=== PATIENT | female | born 1965 | race Caucasian/White ===

== ENCOUNTER 2021-06-21 18:11 | Emergency (ER) | payer BC ==
[2021-06-21 18:29] VITALS: RESP 18
[2021-06-21] MEDS ORDERED: ACETAMINOPHEN TAB 325 MG TAB PO STA (18:47)
[2021-06-21] MEDS ORDERED: IBUPROFEN 600 MG TAB PO STA (18:47)
[2021-06-21] MEDS ORDERED: DEXAMETHASONE SOD PHOSPHATE 10 MG/ML 1 ML VIAL IVP STA (18:48)
--- NOTE | 2021-06-21 19:37 | ED ---
Recheck HPI - General Chief Complaint: Recheck/Abnormal Lab/Rx Stated Complaint: Covid+/Fever/antibodies Time Seen by Provider: 06/21/21 18:47 Source: patient, RN notes reviewed Mode of arrival: ambulatory Limitations: no limitations - History of Present Illness Initial Comments: Patient is a 55-year-old female that presents to the emergency department complaining of being Covid positive. She notes she has a very mild symptoms including fever. She notes that she does have a history of breast cancer. She did bring her positive Covid test with her. She was informed of this will be scanned into her file. Patient otherwise well-appearing in no apparent distress or pain. She denied chest pain short of breath headache nausea vomiting diarrhea constipation fatigue chills. - Related Data Allergies Allergy/AdvReac Type Severity Reaction Status Date / Time No Known Allergies Allergy Verified 06/21/21 18:51 Review of Systems ROS Statement: Those systems with pertinent positive or pertinent negative responses have been documented in the HPI. ROS Other: All systems not noted in ROS Statement are negative. Past Medical History Past Medical History: Cancer Additional Past Medical History / Comment(s): Mitral valve prolapse, POTS. History of Any Multi-Drug Resistant Organisms: None Reported Past Surgical History: Breast Surgery Past Psychological History: No Psychological Hx Reported Smoking Status: Never smoker Past Alcohol Use History: None Reported Past Drug Use History: None Reported General Exam Limitations: no limitations General appearance: alert, in no apparent distress Head exam: Present: atraumatic, normocephalic, normal inspection Eye exam: Present: normal appearance, PERRL, EOMI. Absent: scleral icterus, conjunctival injection, periorbital swelling ENT exam: Present: normal exam, mucous membranes moist Neck exam: Present: normal inspection Respiratory exam: Present: normal lung sounds bilaterally. Absent: respiratory distress, wheezes, rales, rhonchi, stridor Cardiovascular Exam: Present: regular rate, normal rhythm, normal heart sounds. Absent: systolic murmur, diastolic murmur, rubs, gallop, clicks GI/Abdominal exam: Present: soft, normal bowel sounds. Absent: distended, tenderness, guarding, rebound, rigid Extremities exam: Present: normal inspection, full ROM, normal capillary refill. Absent: tenderness, pedal edema, joint swelling, calf tenderness Neurological exam: Present: alert, oriented X3, CN II-XII intact Psychiatric exam: Present: normal affect, normal mood Skin exam: Present: warm, dry, intact, normal color. Absent: rash Course Vital Signs 06/21/21 18:26 Temperature 100.7 F H Pulse Rate 79 Respiratory 18 Rate Blood Pressure 161/87 O2 Sat by Pulse 98 Oximetry Medical Decision Making - Medical Decision Making 55-year-old female Covid-positive requesting monoclonal antibodies. 600 mg of Motrin, 650 mg of Tylenol, 4 g of Decadron ordered. Patient does meet criteria for monoclonal antibodies given history of cancer. Case discussed with Dr. Pérez, patient can discharge home after infusion. Disposition Clinical Impression: COVID Disposition: HOME SELF-CARE Condition: Stable Instructions (If sedation given, give patient instructions): Coronavirus Disease 2019 (COVID-19) Additional Instructions: Please return to the Emergency Department if symptoms worsen or any other concerns. Is patient prescribed a controlled substance at d/c from ED?: No Referrals: Paul Gloria DO [Primary Care Provider] - 1-2 days Time of Disposition: 19:37
[2021-06-21] MEDS ORDERED: SOTROVIMAB (EUA) 500 MG in SODIUM CHLORIDE 0.9% 100 ML IVPB ONE (19:45)
[2021-06-21] MEDS ORDERED: SODIUM CHLORIDE 0.9% 50 ML IVPB ONE (19:45)
[2021-06-21 21:38] VITALS: BP 116/75; PULSE 60; TEMP 98.3
== END 2021-06-21 21:38 | disposition home or self-care (01) ==
LOC: EC 18:11
DX: U07.1 COVID-19 (principal)
CPT/HCPCS: 99283; 96374; J1100; Q0247